=== PATIENT | female | born 1945 | race Caucasian/White ===

== ENCOUNTER → 2016-10-28 | Outpatient (CLI) | payer MEDICARE, OTHER | LOC: HEART 5 08:30 | DX: R00.2 Palpitations (principal) ==

== ENCOUNTER → 2016-11-26 | Outpatient (CLI) | payer MEDICARE, OTHER | LOC: HEART 5 07:49 | DX: I20.9 Angina pectoris, unspecified (principal) | CPT/HCPCS: 78452; A9502; J2785 ==

== ENCOUNTER → 2021-01-28 | Outpatient (CLI) | payer MEDICARE, OTHER ==
[~2021-01-28] MED LIST: COREG 25MG TAB25 MG PO; ECOTRIN81 MG PO; ENTRESTO 97 MG1 EACH PO; FLUTICASONE PROPIONA; GLUCOPHAGE XR500 MG PO; HYDROCHLOROTHIA25 MG PO; IRON PO; LEVAQUIN500 MG PO; NITROSTAT 0.40.4 MG SL; NORCO 7.5-3251 EACH PO; NORVASC 5 MG TAB5 MG PO; PLAVIX 75 MG TA75 MG PO; PROAIR 108 INH; RANEXA1000 MG PO; SYNTHROID 125125 MCG PO; VITAMIN D250000 UNIT PO; VOLTAREN GEL 1% TD
== END ==
LOC: HEART 5 08:52
DX: Z01.810 Encounter for preprocedural cardiovascular examination (principal); I20.9 Angina pectoris, unspecified; I47.1 Supraventricular tachycardia
CPT/HCPCS: 78452; A9502; J2785